=== PATIENT | female | born 1990 | race Caucasian/White ===

== ENCOUNTER 2019-07-24 18:00 | Inpatient (IN) | payer BC ==
[2019-07-24] MEDS ORDERED: Sodium Chloride 0.9% 10 ML Syringe FLUSH PRN (20:22)
[2019-07-24] MEDS ORDERED: Nalbuphine 10 MG/ML Syringe IVPUSH PRN (20:22)
[2019-07-24] MEDS ORDERED: Ondansetron 4 MG/2 ML SDV IVPUSH PRN (20:33)
[2019-07-24] MEDS ORDERED: fentaNYL 100 MCG/2 ML SDV EPIDUR PRN (20:33)
[2019-07-24] MEDS ORDERED: ePHEDrine 50 MG/ML SDV IVPUSH PRN (20:33)
--- NOTE | 2019-07-24 20:34 | PCM.PREANE ---
Preanesthetic Assessment - Procedure Proposed Procedure: Epidural - Anesthesia/Transfusion/Family Hx Anesthesia History: Prior Anesthesia Without Reaction Family History of Anesthesia Reaction: No Transfusion History: No Prior Transfusion(s) Intubation History: Unknown - Review of Systems General: No Symptoms Pulmonary: No Symptoms Cardiovascular: No Symptoms (Preeclampsia) Gastrointestinal: No Symptoms (GERD with ) Neurological: No Symptoms Other: Reports: None - Physical Assessment NPO Status Date: 07/24/19 NPO Status Time: 21:30 Vital Signs: HR:89 B/P:131/86 Sat:99% Resp:16 Temp:99.1 Height: 1.65 m Weight: 94.937 kg ASA Class: 2 Mental Status: Alert & Oriented x3 Airway Class: Mallampati = 2 Dentition: Reports: Normal Dentition, Caries Thyro-Mental Finger Breadths: 3 Mouth Opening Finger Breadths: 3 ROM/Head Extension: Full Lungs: Clear to Auscultation, Normal Respiratory Effort Cardiovascular: Regular Rate, Regular Rhythm, No Murmurs - Lab Values: Labs reviewed and noted and within acceptable ranges to proceed with epidural if desired. - Allergies Allergies/Adverse Reactions: Allergies Allergy/AdvReac Type Severity Reaction Status Date / Time No Known Allergies Allergy Verified 07/14/19 16:41 - Anesthesia Plan Pre-Op Medication Ordered: None - Acknowledgements Anesthesia Type Planned: Epidural Pt an Appropriate Candidate for the Planned Anesthesia: Yes Alternatives and Risks of Anesthesia Discussed w Pt/Guardian: Yes Pt/Guardian Understands and Agrees with Anesthesia Plan: Yes PreAnesthesia Questionnaire - HOME MEDS Home Medications: Home Meds No122/Iron/Folic Acid [ Multi Tablet] 1 tab PO DAILY 07/14/19 [ History] - CURRENT (IN HOUSE) MEDS Current Meds: Current Medications Lactated Ringer's (Ringers, Lactated) 1,000 mls @ 100 mls/hr IV ASDIRECTED DMITRY Nalbuphine HCl (Nubain) 10 mg IVPUSH Q2H PRN PRN Reason: Pain Ondansetron HCl (Zofran) 4 mg IVPUSH Q4H PRN PRN Reason: Nausea/Vomiting Sodium Chloride (Saline Flush) 10 ml FLUSH ASDIRECTED PRN PRN Reason: Keep Vein Open
[2019-07-24] MEDS ORDERED: Phenylephrine 1 MG in Sodium Chloride 0.9% 10 ML IV SCH (20:45)
[2019-07-24] MEDS ORDERED: Misoprostol 25 MCG (1/4 of 100 MCG) Tab ONE (21:57)
[2019-07-24] MEDS ORDERED: Misoprostol 25 MCG (1/4 of 100 MCG) Tab VAG ONE (21:58)
[2019-07-25] MEDS ORDERED: Misoprostol 25 MCG (1/4 of 100 MCG) Tab ONE (02:13)
[2019-07-25] MEDS ORDERED: Misoprostol 25 MCG (1/4 of 100 MCG) Tab VAG ONE ×2 (02:15→06:14)
[2019-07-25] MEDS: Lactated Ringers 1,000 ML IV SCH ×3 (03:40→12:38)
[2019-07-25] MEDS: Bupivacaine/fentaNYL/NS 100 ML Bag EPIDUR SCH ×3 (03:51→19:28)
[2019-07-25] MEDS ORDERED: diphenhydrAMINE 50 MG/ML SDV IVPUSH ONE (05:34)
[2019-07-25] MEDS ORDERED: diphenhydrAMINE 50 MG/ML SDV IVPUSH PRN (10:48)
[2019-07-25] MEDS: Oxytocin/Lactated Ringers 10 UNIT/1,000 ML BAG IV SCH (11:34)
--- NOTE | 2019-07-25 21:43 | PCM.SN.2 ---
- Free Text/Narrative Note: 2124 called to room 31 for complains of labor pain. Patient not getting relief from working epidural. Bolus with 2ml fentanyl and 10ml 0.25% bupivacaine. Also increased epidural gtt from 10ml/hr to 14ml/hr. Level noted to be at T8 out of room at 2142 VSS.
[2019-07-25] MEDS: Ondansetron 4 MG/2 ML SDV IVPUSH PRN (22:16)
[2019-07-26] MEDS ORDERED: Bupivacaine 0.25% 10 ML SDV ONE
[2019-07-26] MEDS: Oxytocin/Lactated Ringers 10 UNIT/1,000 ML BAG IV SCH ×2 (01:13→14:42)
[2019-07-26] MEDS: Bupivacaine/fentaNYL/NS 100 ML Bag EPIDUR SCH ×4 (01:27→14:52)
[2019-07-26] MEDS ORDERED: Sodium Chloride 0.9% 1,000 ML IV ONE (04:37)
[2019-07-26] MEDS: Lactated Ringers 1,000 ML IV SCH (07:40)
[2019-07-26] MEDS: Ondansetron 4 MG/2 ML SDV IVPUSH PRN (12:48)
--- NOTE | 2019-07-26 16:13 | PCM.LDHP ---
L&D History of Present Illness - General Date of Service: 07/24/19 Admit Problem/Dx: Patient Status Order with Admit Dx/Problem 07/24/19 20:23 Patient Status [ADT] Routine Admission Diagnosis/Problem Admission Diagnosis/Problem Source of Information: Patient - History of Present Illness Introduction:: 29 year old at 37w4d here for induction of labor for gestational hypertension. PNC with myself without complications. Pain Score: 6 - Related Data Allergies/Adverse Reactions: Allergies Allergy/AdvReac Type Severity Reaction Status Date / Time No Known Allergies Allergy Verified 07/14/19 16:41 Home Medications: Home Meds No122/Iron/Folic Acid [ Multi Tablet] 1 tab PO DAILY 07/14/19 [ History] Past Medical History HEENT History: Reports: Other (See Below) Other HEENT History: Pt wears glasses/contacts Cardiovascular History: Reports: Other (See Below) Other Cardiovascular History: Elevated BPs at the end of . Induction for PIH. Respiratory History: Reports: None Gastrointestinal History: Reports: None Genitourinary History: Reports: UTI, Recurrent, Other (See Below) Other Genitourinary History: Pt has a history of recurrent UTI's but has had none this . Takes Cranberry supplement daily. 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 Female Surgical History: Reports: None Social & Family History - Family History Family Medical History: Noncontributory - Tobacco Use Smoking Status *Q: Never Smoker Second Hand Smoke Exposure: No - Caffeine Use Caffeine Use: Reports: None - Recreational Drug Use Recreational Drug Use: No H&P Review of Systems - Review of Systems: Review Of Systems: See Below General: Reports: No Symptoms HEENT: Reports: No Symptoms Pulmonary: Reports: No Symptoms Cardiovascular: Reports: No Symptoms Gastrointestinal: Reports: No Symptoms Genitourinary: Reports: No Symptoms Musculoskeletal: Reports: No Symptoms Skin: Reports: No Symptoms Psychiatric: Reports: No Symptoms Neurological: Reports: No Symptoms Hematologic/Lymphatic: Reports: No Symptoms Immunologic: Reports: No Symptoms L&D Exam - Exam Exam: See Below - Vital Signs Vital Signs: Last Vital Signs Temp 37.3 C 07/24/19 19:45 Pulse 92 07/24/19 19:45 Resp 16 07/24/19 19:45 BP 136/81 07/24/19 19:45 Pulse Ox 99 07/24/19 19:45 Weight: 94.937 kg - OB Specific Movement: Active Heart Tones: Present - Wick Score Wick Score Cervix Position: Anterior Wick Score Consistency: Medium Wick Score Effacement: 51-70% Wick Score Dilation: Closed Wick Score 's Station: -3 Wick Score Total: 5 - Exam General: Alert, Oriented HEENT: PERRLA, Conjunctiva Clear, EACs Clear, EOMI, Hearing Intact, Mucosa Moist & [place], Nares Patent, Normal Nasal Septum, Posterior Pharynx Clear, TMs Clear Neck: Supple, Trachea Midline Lungs: Clear to Auscultation, Normal Respiratory Effort Cardiovascular: Regular Rate, Regular Rhythm GI/Abdominal Exam: Normal Bowel Sounds, Soft, Non-Tender, No Organomegaly, No Distention, No Abnormal Bruit, No Mass, Pelvis Stable Genitourinary: Normal external exam, Normal bimanual exam, Normal speculum exam , Other (eldridge bulb placed via speculum ) Back Exam: Normal Inspection, Full Range of Motion Extremities: Normal Inspection, Normal Range of Motion, Non-Tender, No Pedal Edema, Normal Capillary Refill Skin: Warm, Dry, Intact Neurological: Cranial Nerves Intact, Reflexes Equal Bilateral Psychiatric: Alert, Normal Affect, Normal Mood - Patient Data Result Diagrams: 07/24/19 20:38 Problem List Initiated/Reviewed/Updated: Yes Orders Last 24hrs: Medication Orders Diphenhydramine HCl (Benadryl) 25 mg IVPUSH Q6H PRN PRN Reason: Itching Last Admin: 07/25/19 11:31 Dose: 25 mg Ephedrine Sulfate (Ephedrine Sulfate) 5 mg IVPUSH ASDIRECTED PRN PRN Reason: Hypotension Fentanyl (Sublimaze) 100 mcg EPIDUR Q3H PRN PRN Reason: Pain Last Admin: 07/25/19 03:51 Dose: 100 mcg Fentanyl/Bupivacaine HCl (Fentanyl/Bupivacaine/Ns 2 Mcg-0.125% 100 Ml) 100 ml EPIDUR ASDIRECTED DMITRY Last Admin: 07/26/19 14:52 Dose: 100 ml Admin: 07/26/19 10:21 Dose: 100 ml Admin: 07/26/19 05:35 Dose: 100 ml Admin: 07/26/19 01:27 Dose: 100 ml Admin: 07/25/19 19:28 Dose: 100 ml Admin: 07/25/19 12:38 Dose: 100 ml Admin: 07/25/19 03:51 Dose: 100 ml Lactated Ringer's (Ringers, Lactated) 1,000 mls @ 100 mls/hr IV ASDIRECTED DMITRY Last Admin: 07/26/19 07:40 Dose: 999 mls/hr Infusion: 07/25/19 13:39 Dose: 999 mls/hr Admin: 07/25/19 12:38 Dose: 999 mls/hr Infusion: 07/25/19 05:17 Dose: 999 mls/hr Admin: 07/25/19 04:16 Dose: 999 mls/hr Infusion: 07/25/19 04:16 Dose: 999 mls/hr Admin: 07/25/19 03:40 Dose: 999 mls/hr Phenylephrine HCl 1 mg/ Sodium (Chloride) 10.1 mls @ 1 mls/sec IV TITRATE DMITRY; Protocol Oxytocin/Lactated Ringer's (Pitocin In Lr 10 Units/1,000 Ml) 10 unit in 1,000 mls @ 12 mls/hr IV TITRATE DMITRY; Protocol Last Titration: 07/26/19 15:42 Dose: 16 munits/min, 96 mls/hr Admin: 07/26/19 14:42 Dose: 18 munits/min, 108 mls/hr Titration: 07/26/19 14:42 Dose: 18 munits/min, 108 mls/hr Titration: 07/26/19 13:11 Dose: 18 munits/min, 108 mls/hr Titration: 07/26/19 12:26 Dose: 20 munits/min, 120 mls/hr Titration: 07/26/19 11:51 Dose: 18 munits/min, 108 mls/hr Titration: 07/26/19 11:24 Dose: 16 munits/min, 96 mls/hr Titration: 07/26/19 10:49 Dose: 14 munits/min, 84 mls/hr Titration: 07/26/19 09:46 Dose: 12 munits/min, 72 mls/hr Titration: 07/26/19 08:38 Dose: 10 munits/min, 60 mls/hr Titration: 07/26/19 08:20 Dose: 8 munits/min, 48 mls/hr Titration: 07/26/19 04:26 Dose: 7 munits/min, 42 mls/hr Titration: 07/26/19 02:05 Dose: 14 munits/min, 84 mls/hr Titration: 07/26/19 01:35 Dose: 12 munits/min, 72 mls/hr Admin: 07/26/19 01:13 Dose: 11 munits/min, 66 mls/hr Titration: 07/26/19 00:19 Dose: 16 munits/min, 96 mls/hr Titration: 07/25/19 17:14 Dose: 16 munits/min, 96 mls/hr Titration: 07/25/19 15:23 Dose: 14 munits/min, 84 mls/hr Titration: 07/25/19 14:40 Dose: 12 munits/min, 72 mls/hr Titration: 07/25/19 14:10 Dose: 10 munits/min, 60 mls/hr Titration: 07/25/19 13:15 Dose: 8 munits/min, 48 mls/hr Titration: 07/25/19 12:40 Dose: 6 munits/min, 36 mls/hr Titration: 07/25/19 12:15 Dose: 4 munits/min, 24 mls/hr Admin: 07/25/19 11:34 Dose: 2 munits/min, 12 mls/hr Nalbuphine HCl (Nubain) 10 mg IVPUSH Q2H PRN PRN Reason: Pain Ondansetron HCl (Zofran) 4 mg IVPUSH Q4H PRN PRN Reason: Nausea/Vomiting Last Admin: 07/26/19 12:48 Dose: 4 mg Admin: 07/25/19 22:16 Dose: 4 mg Ondansetron HCl (Zofran) 4 mg IVPUSH ONETIME PRN PRN Reason: Nausea/Vomiting Sodium Chloride (Saline Flush) 10 ml FLUSH ASDIRECTED PRN PRN Reason: Keep Vein Open Assessment/Plan Comment:: Term induction. Eldridge bulb placed. Blood pressures appropriate.
--- NOTE | 2019-07-26 16:16 | PCM.PNLD ---
Labor Progress Note - VS & Meds Vital Signs: Last Vital Signs Temp 37.3 C 07/24/19 19:45 Pulse 92 07/24/19 19:45 Resp 16 07/24/19 19:45 BP 136/81 07/24/19 19:45 Pulse Ox 99 07/24/19 19:45 Active Medications: Current Medications Diphenhydramine HCl (Benadryl) 25 mg IVPUSH Q6H PRN PRN Reason: Itching Last Admin: 07/25/19 11:31 Dose: 25 mg Ephedrine Sulfate (Ephedrine Sulfate) 5 mg IVPUSH ASDIRECTED PRN PRN Reason: Hypotension Fentanyl (Sublimaze) 100 mcg EPIDUR Q3H PRN PRN Reason: Pain Last Admin: 07/25/19 03:51 Dose: 100 mcg Fentanyl/Bupivacaine HCl (Fentanyl/Bupivacaine/Ns 2 Mcg-0.125% 100 Ml) 100 ml EPIDUR ASDIRECTED DMITRY Last Admin: 07/26/19 14:52 Dose: 100 ml Lactated Ringer's (Ringers, Lactated) 1,000 mls @ 100 mls/hr IV ASDIRECTED DMITRY Last Admin: 07/26/19 07:40 Dose: 999 mls/hr Phenylephrine HCl 1 mg/ Sodium (Chloride) 10.1 mls @ 1 mls/sec IV TITRATE DMITRY; Protocol Oxytocin/Lactated Ringer's (Pitocin In Lr 10 Units/1,000 Ml) 10 unit in 1,000 mls @ 12 mls/hr IV TITRATE DMITRY; Protocol Last Titration: 07/26/19 15:42 Dose: 16 munits/min, 96 mls/hr Nalbuphine HCl (Nubain) 10 mg IVPUSH Q2H PRN PRN Reason: Pain Ondansetron HCl (Zofran) 4 mg IVPUSH Q4H PRN PRN Reason: Nausea/Vomiting Last Admin: 07/26/19 12:48 Dose: 4 mg Ondansetron HCl (Zofran) 4 mg IVPUSH ONETIME PRN PRN Reason: Nausea/Vomiting Sodium Chloride (Saline Flush) 10 ml FLUSH ASDIRECTED PRN PRN Reason: Keep Vein Open Discontinued Medications Diphenhydramine HCl (Benadryl) 25 mg IVPUSH ONETIME ONE Stop: 05/08/20 05:35 Last Admin: 07/25/19 05:42 Dose: 25 mg Sodium Chloride (Normal Saline) 1,000 mls @ 100 mls/hr IV ONETIME ONE Stop: 07/26/19 14:36 Last Admin: 07/26/19 04:48 Dose: 100 mls/hr Misoprostol (Cytotec) 50 mcg VAG ONETIME ONE Stop: 07/24/19 21:59 Last Admin: 07/24/19 22:06 Dose: 50 mcg Misoprostol (Cytotec) Confirm Administered Dose 25 mcg .ROUTE .STK-MED ONE Stop: 07/24/19 21:58 Last Admin: 07/24/19 22:04 Dose: Not Given Misoprostol (Cytotec) Confirm Administered Dose 25 mcg .ROUTE .STK-MED ONE Stop: 07/25/19 02:14 Last Admin: 07/25/19 02:42 Dose: Not Given Misoprostol (Cytotec) 25 mcg VAG ONETIME ONE Stop: 07/25/19 02:16 Last Admin: 07/25/19 02:15 Dose: 25 mcg Misoprostol (Cytotec) 25 mcg VAG ONETIME ONE Stop: 07/25/19 06:15 Last Admin: 07/25/19 06:23 Dose: 25 mcg - Uterine Contractions Uterine Monitoring Mode: External [place] Contraction Intensity: Mild to Moderate Uterine Resting Tone: Soft - Monitoring Heart Rate (FHR) Variability: Moderate (6-25 bmp) Accelerations: Present, 15x15 Decelerations: None Strip Review: Category I - Vaginal Exam Dilation (cm): 4 Effacement (Percent): 80 Station: -2 - Labor Progress (Free Text) Labor Progress: Progressing slowly. Likely active labor now. Monitor. Anticipate unless otherwise indicated
--- NOTE | 2019-07-26 16:20 | PCM.PNLD ---
Labor Progress Note - VS & Meds Vital Signs: Last Vital Signs Temp 37.3 C 07/24/19 19:45 Pulse 92 07/24/19 19:45 Resp 16 07/24/19 19:45 BP 136/81 07/24/19 19:45 Pulse Ox 99 07/24/19 19:45 Active Medications: Current Medications Diphenhydramine HCl (Benadryl) 25 mg IVPUSH Q6H PRN PRN Reason: Itching Last Admin: 07/25/19 11:31 Dose: 25 mg Ephedrine Sulfate (Ephedrine Sulfate) 5 mg IVPUSH ASDIRECTED PRN PRN Reason: Hypotension Fentanyl (Sublimaze) 100 mcg EPIDUR Q3H PRN PRN Reason: Pain Last Admin: 07/25/19 03:51 Dose: 100 mcg Fentanyl/Bupivacaine HCl (Fentanyl/Bupivacaine/Ns 2 Mcg-0.125% 100 Ml) 100 ml EPIDUR ASDIRECTED DMITRY Last Admin: 07/26/19 14:52 Dose: 100 ml Lactated Ringer's (Ringers, Lactated) 1,000 mls @ 100 mls/hr IV ASDIRECTED DMITRY Last Admin: 07/26/19 07:40 Dose: 999 mls/hr Phenylephrine HCl 1 mg/ Sodium (Chloride) 10.1 mls @ 1 mls/sec IV TITRATE DMITRY; Protocol Oxytocin/Lactated Ringer's (Pitocin In Lr 10 Units/1,000 Ml) 10 unit in 1,000 mls @ 12 mls/hr IV TITRATE DMITRY; Protocol Last Titration: 07/26/19 15:42 Dose: 16 munits/min, 96 mls/hr Nalbuphine HCl (Nubain) 10 mg IVPUSH Q2H PRN PRN Reason: Pain Ondansetron HCl (Zofran) 4 mg IVPUSH Q4H PRN PRN Reason: Nausea/Vomiting Last Admin: 07/26/19 12:48 Dose: 4 mg Ondansetron HCl (Zofran) 4 mg IVPUSH ONETIME PRN PRN Reason: Nausea/Vomiting Sodium Chloride (Saline Flush) 10 ml FLUSH ASDIRECTED PRN PRN Reason: Keep Vein Open Discontinued Medications Diphenhydramine HCl (Benadryl) 25 mg IVPUSH ONETIME ONE Stop: 05/08/20 05:35 Last Admin: 07/25/19 05:42 Dose: 25 mg Sodium Chloride (Normal Saline) 1,000 mls @ 100 mls/hr IV ONETIME ONE Stop: 07/26/19 14:36 Last Admin: 07/26/19 04:48 Dose: 100 mls/hr Misoprostol (Cytotec) 50 mcg VAG ONETIME ONE Stop: 07/24/19 21:59 Last Admin: 07/24/19 22:06 Dose: 50 mcg Misoprostol (Cytotec) Confirm Administered Dose 25 mcg .ROUTE .STK-MED ONE Stop: 07/24/19 21:58 Last Admin: 07/24/19 22:04 Dose: Not Given Misoprostol (Cytotec) Confirm Administered Dose 25 mcg .ROUTE .STK-MED ONE Stop: 07/25/19 02:14 Last Admin: 07/25/19 02:42 Dose: Not Given Misoprostol (Cytotec) 25 mcg VAG ONETIME ONE Stop: 07/25/19 02:16 Last Admin: 07/25/19 02:15 Dose: 25 mcg Misoprostol (Cytotec) 25 mcg VAG ONETIME ONE Stop: 07/25/19 06:15 Last Admin: 07/25/19 06:23 Dose: 25 mcg - Uterine Contractions Uterine Monitoring Mode: External [place] Contraction Intensity: Mild to Moderate Uterine Resting Tone: Soft - Monitoring Heart Rate (FHR) Variability: Moderate (6-25 bmp) Accelerations: Present, 15x15 Decelerations: None Strip Review: Category I - Vaginal Exam Dilation (cm): 9.5 Effacement (Percent): 100 Station: -1 Cervical Position: Anterior - Labor Progress (Free Text) Labor Progress: Progressing well. Hands and knees. Pushed for a short period of time and then found to have small anterior lip of cervix. Hands and knees now and will recheck and resume pushing if complete in 15 minutes. Still afebrile and reassuring FHT
[2019-07-26] MEDS: Ibuprofen 600 MG Tab PO PRN (19:30)
--- NOTE | 2019-07-26 19:39 | PCM.SN.2 ---
- Free Text/Narrative Note: Stage I - Patient presented for induction of labor for gestational hypertension. Schmid bulb placed. SROM. Epidural anesthesia. Cytotec x 3 doses. Pitocin initiated. IUPC placed. Progressed slowly to complete with overall reassuring heart tones. In last hour of pushing began having some tachycardia. No maternal fever. Stage II -Consent for vacuum obtained. Vacuum assisted vaginal delivery of limp female. Vacuum applied. Over two contractions delivery achieved easily. Body and shoulders followed without difficulty. Cord clamped and cut and baby to warmer immediately. Weight pending. APGARS 0/0/2. Heart rate present intermittently but less than 60. Chest compressions initiated immediately. Stage - of intact placenta. 3vc. Small 2nd degree laceration repaired with 3 -0 vicryl. EBL 600. Cord blood not collected.
[2019-07-26] MEDS ORDERED: Misoprostol 200 MCG Tab PO PRN (19:54)
[2019-07-26] MEDS ORDERED: Docusate Sodium 100 MG Cap PO PRN (19:54)
[2019-07-26] MEDS ORDERED: Benzocaine/Menthol 20%-0.5% Spray 56 GM Canister TOP PRN (20:40)
[2019-07-26] MEDS ORDERED: Oxytocin 10 Units/1 ML SDV IM ONE (20:42)
[2019-07-26] MEDS ORDERED: Witch Hazel Medicated Pads 40/Jar TOP PRN (20:42)
[2019-07-27] MEDS ORDERED: Oxytocin/Lactated Ringers 10 UNIT/1,000 ML BAG IV SCH (04:45)
--- NOTE | 2019-07-27 05:49 | PCM.DCSUM1 ---
Discharge Summary - Hospital Course HPI Initial Comments: 29 year old presented for induction of labor for elevated blood pressures. PNC with myself complicated only by that. Brief History: Admitted. Uncomplicated induction with eldridge bulb, srom and pitocin. VAVD to shorten second stage with tachycardia. resucussitation needed. Expresses desire for discharge on PPD1 to join baby in [facility]. Diagnosis: Stroke: No - Discharge Data Discharge Date: 07/27/19 Discharge Disposition: Home, Self-Care 01 Condition: Good - Referral to Home Health Primary Care Physician: Qing Bello MD - Patient Instructions Diet: Usual Diet as Tolerated Activity: No Strenuous Activities Activity, Other: pelvic rest Driving: Do Not Drive (2 days) Showering/Bathing: May Shower Notify Provider of: Fever, Increased Pain, Swelling and Redness, Drainage, Nausea and/or Vomiting - Discharge Plan *PRESCRIPTION DRUG MONITORING PROGRAM REVIEWED*: No *COPY OF PRESCRIPTION DRUG MONITORING REPORT IN PATIENT ZULEYKA: No Home Medications: Home Meds No122/Iron/Folic Acid [ Multi Tablet] 1 tab PO DAILY 07/14/19 [ History] Referrals: Qing Bello MD [Primary Care Provider] - (1 week) - Discharge Summary/Plan Comment DC Time >30 min.: No - General Info Date of Service: 07/27/19 Functional Status: Reports: Pain Controlled - Review of Systems General: Reports: No Symptoms HEENT: Reports: No Symptoms Pulmonary: Reports: No Symptoms Cardiovascular: Reports: No Symptoms Gastrointestinal: Reports: No Symptoms Genitourinary: Reports: No Symptoms Musculoskeletal: Reports: No Symptoms Skin: Reports: No Symptoms Neurological: Reports: No Symptoms Psychiatric: Reports: No Symptoms - Patient Data Vitals - Most Recent: Last Vital Signs Temp 36.3 C 07/27/19 05:28 Pulse 88 07/27/19 05:28 Resp 14 07/27/19 05:28 BP 116/70 07/27/19 05:28 Pulse Ox 100 07/27/19 05:28 Weight - Most Recent: 94.937 kg Med Orders - Current: Current Medications Benzocaine/Menthol (Dermoplast Pain Relief [place]) 1 gm TOP ASDIRECTED PRN PRN Reason: Pain Last Admin: 07/26/19 21:04 Dose: 1 canister Docusate Sodium (Colace) 100 mg PO BID PRN PRN Reason: Constipation Oxytocin/Lactated Ringer's (Pitocin In Lr 10 Units/1,000 Ml) 10 unit in 1,000 mls @ 500 mls/hr IV ASDIRECTED DMITRY; Protocol Ibuprofen (Motrin) 600 mg PO Q6H PRN PRN Reason: Mild pain or fever Last Admin: 07/26/19 19:30 Dose: 600 mg Misoprostol (Cytotec) 600 mcg PO ONETIME PRN PRN Reason: excessive vaginal bleeding Last Admin: 07/26/19 18:20 Dose: 600 mcg [place] (Tucks) 1 pad TOP ASDIRECTED PRN PRN Reason: Pain Last Admin: 07/26/19 21:05 Dose: 1 container Discontinued Medications Diphenhydramine HCl (Benadryl) 25 mg IVPUSH ONETIME ONE Stop: 07/25/19 05:35 Last Admin: 07/25/19 05:42 Dose: 25 mg Diphenhydramine HCl (Benadryl) 25 mg IVPUSH Q6H PRN PRN Reason: Itching Last Admin: 07/25/19 11:31 Dose: 25 mg Ephedrine Sulfate (Ephedrine Sulfate) 5 mg IVPUSH ASDIRECTED PRN PRN Reason: Hypotension Fentanyl (Sublimaze) 100 mcg EPIDUR Q3H PRN PRN Reason: Pain Last Admin: 07/25/19 03:51 Dose: 100 mcg Fentanyl/Bupivacaine HCl (Fentanyl/Bupivacaine/Ns 2 Mcg-0.125% 100 Ml) 100 ml EPIDUR ASDIRECTED DMITRY Last Admin: 07/26/19 14:52 Dose: 100 ml Lactated Ringer's (Ringers, Lactated) 1,000 mls @ 100 mls/hr IV ASDIRECTED DMITRY Last Admin: 07/26/19 07:40 Dose: 999 mls/hr Phenylephrine HCl 1 mg/ Sodium (Chloride) 10.1 mls @ 1 mls/sec IV TITRATE DMITRY; Protocol Oxytocin/Lactated Ringer's (Pitocin In Lr 10 Units/1,000 Ml) 10 unit in 1,000 mls @ 12 mls/hr IV TITRATE DMITRY; Protocol Last Titration: 07/26/19 15:42 Dose: 16 munits/min, 96 mls/hr Sodium Chloride (Normal Saline) 1,000 mls @ 100 mls/hr IV ONETIME ONE Stop: 07/26/19 14:36 Last Admin: 07/26/19 04:48 Dose: 100 mls/hr Misoprostol (Cytotec) 50 mcg VAG ONETIME ONE Stop: 07/24/19 21:59 Last Admin: 07/24/19 22:06 Dose: 50 mcg Misoprostol (Cytotec) Confirm Administered Dose 25 mcg .ROUTE .STK-MED ONE Stop: 07/24/19 21:58 Last Admin: 07/24/19 22:04 Dose: Not Given Misoprostol (Cytotec) Confirm Administered Dose 25 mcg .ROUTE .STK-MED ONE Stop: 07/25/19 02:14 Last Admin: 07/25/19 02:42 Dose: Not Given Misoprostol (Cytotec) 25 mcg VAG ONETIME ONE Stop: 07/25/19 02:16 Last Admin: 07/25/19 02:15 Dose: 25 mcg Misoprostol (Cytotec) 25 mcg VAG ONETIME ONE Stop: 07/25/19 06:15 Last Admin: 07/25/19 06:23 Dose: 25 mcg Nalbuphine HCl (Nubain) 10 mg IVPUSH Q2H PRN PRN Reason: Pain Ondansetron HCl (Zofran) 4 mg IVPUSH Q4H PRN PRN Reason: Nausea/Vomiting Last Admin: 07/26/19 12:48 Dose: 4 mg Ondansetron HCl (Zofran) 4 mg IVPUSH ONETIME PRN PRN Reason: Nausea/Vomiting Oxytocin (Pitocin) 10 unit IM ONETIME ONE Stop: 07/26/19 20:43 Last Admin: 07/26/19 21:04 Dose: Not Given Sodium Chloride (Saline Flush) 10 ml FLUSH ASDIRECTED PRN PRN Reason: Keep Vein Open - Exam General: Reports: Alert, Oriented HEENT: Reports: Pupils Equal, Pupils Reactive, EOMI, Mucous Membr. Moist/[place] Neck: Reports: Supple Lungs: Reports: Clear to Auscultation, Normal Respiratory Effort Cardiovascular: Reports: Regular Rate, Regular Rhythm GI/Abdominal Exam: Normal Bowel Sounds, Soft, Non-Tender, No Organomegaly, Other (ff at u) Back Exam: Reports: Normal Inspection Extremities: Normal Inspection, Normal Range of Motion, Non-Tender Skin: Reports: Warm, Dry, Intact Wound/Incisions: Reports: Healing Well Neurological: Reports: No New Focal Deficit Psy/Mental Status: Reports: Alert, Normal Affect, Normal Mood
[2019-07-27] MEDS: Ibuprofen 600 MG Tab PO PRN (06:14)
--- NOTE | 2019-07-27 09:45 | PCM48HPAN ---
Post Anesthesia Note - EVALUATION WITHIN 48HRS OF ANESTHETIC Vital Signs in Normal Range: Yes Patient Participated in Evaluation: No (Per RN) Respiratory Function Stable: Yes Airway Patent: Yes Cardiovascular Function Stable: Yes Hydration Status Stable: Yes Pain Control Satisfactory: Yes Nausea and Vomiting Control Satisfactory: Yes Mental Status Recovered: Yes Vital Signs: Last Vital Signs Temp 36.5 C 07/27/19 07:55 Pulse 87 07/27/19 07:55 Resp 14 07/27/19 07:55 BP 119/67 07/27/19 07:55 Pulse Ox 99 07/27/19 07:55 - COMMENTS/OBSERVATIONS Free Text/Narrative:: no anesthesia complications noted
== END 2019-07-27 08:05 | disposition home or self-care (01) | DRG 560 ==
LOC: JD.OB 18:00 → OBSVTOIN 07-26 18:00 → JD.OB 07-26 18:30
PROVIDERS: ADMIT Obstetrics & Gynecology; ATTEND Obstetrics & Gynecology
PROC: 10E0XZZ Delivery of Products of Conception, External Approach (ICD-10-PCS; principal; 2019-07-26)
PROC: 3E0P7VZ Introduction of Hormone into Female Reproductive, Via Natural or Artificial Opening (ICD-10-PCS; 2019-07-26)
PROC: 0KQM0ZZ Repair Perineum Muscle, Open Approach (ICD-10-PCS; 2019-07-26)
PROC: 3E033VJ Introduction of Other Hormone into Peripheral Vein, Percutaneous Approach (ICD-10-PCS; 2019-07-26)
PROC: 3E0R3BZ Introduction of Anesthetic Agent into Spinal Canal, Percutaneous Approach (ICD-10-PCS; 2019-07-26)
PROC: 10H07YZ Insertion of Other Device into Products of Conception, Via Natural or Artificial Opening (ICD-10-PCS; 2019-07-26)
DX: O13.4 Gestational [pregnancy-induced] hypertension without significant proteinuria, complicating childbirth (principal); Z3A.37 37 weeks gestation of pregnancy; Z37.0 Single live birth; O70.1 Second degree perineal laceration during delivery; O76 Abnormality in fetal heart rate and rhythm complicating labor and delivery
CPT/HCPCS: 01967; 36415; 51701; 51702; 59025; 59409; 85025; 86592; A9270-GY; J1200; J2405; J2590; J3010; J3490; J7030; J7120